=== PATIENT | female | born 1960 | race Caucasian/White ===

== ENCOUNTER 2018-06-15 09:49 | Day surgery (SDC) | payer MEDICARE ==
[~2018-06-15] VITALS: Ht 162.6 cm; Wt 139.5 kg
--- NOTE | ~2018-06-15 | OP ---
PATIENT NAME: LUAN ZAZUETA MEDICAL RECORD: [id number] :58 LOCATION:[facility] ADMISSION DATE: SURGEON: JANAK SIDHU MD DATE OF OPERATION: 06/15/2018 PROCEDURE: EGD with biopsy, gastric polypectomy and hemorrhage control. REFERRING PHYSICIAN: Bernard Mosher MD INDICATIONS: Ms. Zazueta is a delightful 57-year-old woman with a history of short segment Schwartz esophagus, takes Nexium 40 mg b.i.d. She has been having recent symptoms of high epigastric pain with her upper abdomen tender to touch. She presents for outpatient EGD. PREMEDICATIONS: Total IV anesthesia (propofol 180 mg) BMI is 53. INSTRUMENT: Olympus video gastroscope, Hemoclip and Hernandez retrieval basket. PROCEDURE AND FINDINGS: After receiving informed consent, Ms. Zazueta posterior pharynx was anesthetized with Cetacaine spray. She was placed in left lateral decubitus position and sedated as per anesthesia. After achieving adequate level of sedation, gastroscope was introduced per orally and advanced to the duodenum without difficulty. Esophageal mucosa was remarkable for a small 0.3-cm flat polyp in the mid esophagus, which was cold-biopsied. There was a 1 cm tongue of salmon-colored mucosa that extended from the Z line proximally and was biopsied. Small sliding type hiatal hernia was present. Gastric mucosa was notable for multiple small polyps in the body. Also, in the body of the stomach was a larger 1 cm polyp that was inflamed and was semi-pedunculated. The base of the polyp was cauterized and the polyp fell off easily and was retrieved with a Hernandez basket. There was mild oozing of blood at the post-polypectomy site in the body of the stomach and Hemoclip was applied with good results and resolution of bleeding. There was streaky erythema of the antrum and antral biopsies were obtained to rule out Helicobacter pylori. No lesions were seen in the cardia or fundus. Pylorus was patent and competent. Duodenal mucosa was without erythema or ulcers, appeared normal through the second portion. Gastroscope was then withdrawn. Ms. Zazueta tolerated the procedure well. No immediate complications. ASSESSMENT: 1. Small mid esophageal polyp, status post biopsy. 2. 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 3. Small sliding type hiatal hernia. 4. Gastric polyps, status post one gastric polypectomy. 5. Gastritis. 6. Epigastric pain. RECOMMENDATIONS: 1. Follow up histopathology. 2. Avoid aspirin, nonsteroidal anti-inflammatory drugs and ESPINOZA-2 inhibitors for 14 days post polypectomy. 3. Continue Nexium [address] of the abdomen. 5. EGD in 2 years. TRANSINT:[id number] Voice Confirmation ID: [id number] DOCUMENT ID: [id number] OPERATIVE REPORT [id number] LUAN ZAZUETA TERRI MD at 1206 CC: BERNARD MOSHER MD [id number] DICTATION DATE: 06/15/18 1435 SHANK RANDER: 06/15/18 1616 [facility] 06/15/18 [id number] [place] [address]
[~2018-06-15 09:49] MED LIST: AMBIEN5 MG; AMBIEN5 MG PO; ATIVAN0.5 MG; ATIVAN1 MG PO; CARAFATE1 G PO; CELEXA20 MG PO; COMPAZINE10 MG; CRESTOR10 MG PO; CYCLOBENZAPRINE10 MG PO; HUMALOG 30100 UNITS/ SC; HUMALOG MI100 UNITS/ SC; HYDROCODONE-APA1 TAB PO; KLOR-CON 1010 MEQ; LASIX40 MG; LEVEMIR100 U/M1; LEVEMIR100 U/M1 SC; LEVOTHROID88 MCG; LEVSIN/ANASP0.125 MG PO; LOVAZA1 G PO; LYRICA200 MG PO; METOZOLV ODT10 MG; MULTIPLE VITAMI1 TA1 PO; NEXIUM40 MG PO; NORCO 10/325 TA1 TA1; PROAIR HFA8.5 GM IH; REGLAN10 MG PO; REQUIP XL2 MG; REQUIP1 MG PO; SINGULAIR10 MG PO; SYNTHROID88 MCG PO; TOVIAZ4 MG PO
[2018-06-15 12:11] VITALS: BP 175/58; Ht 162.6 cm; Wt 139.5 kg
[2018-06-15 12:25] LABS: BASOPHILS 0.4 % (0-2); EOSINOPHILS 1.7 % (0-7); HEMATOCRIT 35.3 % (36.0-48.0); HEMOGLOBIN 11.5 g/dL (12-16); IMMATURE GRANULOCYTES 0.2 % (0-5); LYMPHOCYTES 31.3 % (15-50); MCH 31.1 pg (26.0-34.0); MCHC 32.6 g/dL (31.0-37.0); MCV 95.4 fL (80.0-100.0); MONOCYTES 11.5 % (2-11); NEUTROPHILS 54.9 % (40-80); PLATELET COUNT 153 10x3/uL (130-400); RDW 13.3 % (11.5-14.5); WBC 5.2 10x3/uL (4.8-10.8)
[2018-06-15 12:52] LABS: ANION GAP 14.5 mmol/L (8-16); CALCIUM 8.7 mg/dL (8.5-10.1); CARBON DIOXIDE 27.6 mmol/L (21.0-32.0); CREATININE - SERUM 1.6 mg/dL (0.6-1.3); POTASSIUM - SERUM 5.1 mmol/L (3.5-5.1)
== END 2018-06-15 16:00 | disposition home or self-care (01) ==
LOC: D.OPS 09:49
PROVIDERS: Anesthesiology
DX: K22.70 Barrett's esophagus without dysplasia (principal); K31.7 Polyp of stomach and duodenum; K44.9 Diaphragmatic hernia without obstruction or gangrene; K29.70 Gastritis, unspecified, without bleeding; Z01.812 Encounter for preprocedural laboratory examination

== ENCOUNTER → 2018-06-19 12:10 | Outpatient (CLI) | payer MEDICARE ==
[2018-06-15 12:11] VITALS: BMI 52.8
== END | disposition home or self-care (01) ==
LOC: D.CT 12:10
DX: R10.10 Upper abdominal pain, unspecified (principal)

== ENCOUNTER 2018-10-24 11:35 | Day surgery (SDC) | payer MEDICARE ==
[~2018-10-24] VITALS: Ht 162.6 cm; Wt 140.0 kg
--- NOTE | ~2018-10-24 | OP ---
PATIENT NAME: LUAN ZAZUETA MEDICAL RECORD: [id number] :58 LOCATION:[facility] ADMISSION DATE: SURGEON: JANAK SIDHU MD DATE OF OPERATION: 10/24/2018 PROCEDURE: EGD with biopsy. REFERRING PHYSICIAN: Bernard Mosher MD INDICATIONS: Ms. Zazueta is a delightful 57-year-old woman with a history of GE reflux disease and short segment Schwartz's esophagus. She had a surveillance EGD on 06/15/2018 that showed a small mid esophageal polyp, short segment Schwartz's esophagus, small sliding type hiatal hernia, gastric polyps (1 that was inflamed and semi-pedunculated was removed and biopsied), and gastritis. The distal esophageal biopsy showed no definite Schwartz's mucosa; however, the fundic gland polyp was read as having high-grade dysplastic changes (Dr. 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 She presents for a followup EGD. PREMEDICATIONS: Total IV anesthesia (propofol 150 mg, her BMI is 48). INSTRUMENT: Olympus video gastroscope. PROCEDURE AND FINDINGS: After receiving informed consent, Ms. Zazueta posterior pharynx was anesthetized with Cetacaine spray. She was kept in the supine position. Bite block was placed and she was sedated as per anesthesia. After achieving an adequate level of sedation, gastroscope was introduced per orally and advanced to the duodenum without difficulty. The esophageal mucosa was notable for 1 small tongue of salmon-colored mucosa extending from the Z line proximally (biopsied on previous exam in May 2018). A small sliding type hiatal hernia was noted. A small scar was identified in the body of the stomach and there was no evidence of polyp regrowth (site of previous dysplastic gastric polyp). There were numerous polyps in the gastric body and fundus of the stomach. Multiple polyps were biopsied in the body and in the fundus. There was mild patchy erythema in the antrum and in the proximal cardia of the stomach. Pylorus was patent and competent. Duodenal mucosa was without erythema or ulcers, appeared normal to the second portion. The gastroscope was then withdrawn. Ms. Zazueta tolerated the procedure well, no immediate complications. ASSESSMENT: 1. Small sliding type hiatal hernia. 2. Gastric polyps involving the body and fundus of the stomach status post biopsy. 3. History of dysplastic gastric body polyp scar identified. No evidence of regrowth. 4. Mild gastritis. 5. History of short segment Schwartz esophagus. RECOMMENDATIONS: 1. Follow up histopathology. 2. If no abnormal findings on gastric polyp biopsies then recommend followup EGD in 1 year. 3. Continue Nexium 40 mg p.o. b.i.d. OPERATIVE REPORT [id number] LUAN ZAZUETA TRANSINT:[id number] Voice Confirmation ID: [id number] DOCUMENT ID: [id number] JANAK SIDHU MD at 2002 CC: BERNARD MOSHER MD [id number] DICTATION DATE: 10/24/18 1444 MAINTENANCE MANAGER: 10/24/18 1517 [facility] 10/24/18 [facility] [address] [place] [address]
[2018-10-24 13:29] VITALS: BP 147/73; Ht 162.6 cm; Wt 140.0 kg
[2018-10-24 13:37] LABS: HEMATOCRIT 35.7 % (36.0-48.0); HEMOGLOBIN 11.5 g/dL (12-16); MCH 31.3 pg (26.0-34.0); MCHC 32.2 g/dL (31.0-37.0); MEAN PLATELET VOLUME 10.9 fL (7.4-10.4); RBC 3.68 10x6/uL (4.00-5.40); RDW 13.5 % (11.5-14.5); WBC 4.3 10x3/uL (4.8-10.8)
[2018-10-24 13:56] LABS: ANION GAP 13.3 mmol/L (8-16); CALCIUM 8.6 mg/dL (8.5-10.1); CARBON DIOXIDE 27.6 mmol/L (21.0-32.0); CREATININE - SERUM 1.7 mg/dL (0.6-1.3); POTASSIUM - SERUM 4.9 mmol/L (3.5-5.1)
== END 2018-10-24 16:45 | disposition home or self-care (01) ==
LOC: D.OPS 11:35
PROVIDERS: Anesthesiology
DX: K21.0 Gastro-esophageal reflux disease with esophagitis (principal); K44.9 Diaphragmatic hernia without obstruction or gangrene; K31.7 Polyp of stomach and duodenum; K29.50 Unspecified chronic gastritis without bleeding; K22.70 Barrett's esophagus without dysplasia; Z01.812 Encounter for preprocedural laboratory examination

== ENCOUNTER 2020-02-11 06:11 | Day surgery (SDC) | payer MEDICARE ==
[~2020-02-11] VITALS: Ht 162.6 cm; Wt 137.3 kg
[~2020-02-11 06:11] MED LIST changes: -REQUIP1 MG PO; +ROPINIROLE HCL2 MG PO
[2020-02-11 08:02] VITALS: BP 135/70; Ht 162.6 cm; Wt 137.3 kg
[2020-02-11] MEDS ORDERED: RANITIDINE HCL150 M1 PO (08:14)
[2020-02-11] MEDS ORDERED: OMEGA-3100 MG PO (08:15)
[2020-02-11] MEDS ORDERED: FLUTICASONE PRO16 GM NASAL (08:15)
[2020-02-11] MEDS ORDERED: IPRATROPIUM BRO15 M1 NASAL (08:16)
[2020-02-11 08:21] LABS: HEMATOCRIT 33.9 % (36.0-48.0); HEMOGLOBIN 10.8 g/dL (12-16); MCH 30.9 pg (26.0-34.0); MCHC 31.9 g/dL (31.0-37.0); MCV 96.9 fL (80.0-100.0); MEAN PLATELET VOLUME 10.7 fL (7.4-10.4); RBC 3.5 10x6/uL (4.00-5.40); RDW 13.9 % (11.5-14.5); WBC 4.9 10x3/uL (4.8-10.8)
[2020-02-11 08:35] LABS: ANION GAP 12.9 mmol/L (8-16); CALCIUM 8.3 mg/dL (8.5-10.1); CARBON DIOXIDE 24.9 mmol/L (21.0-32.0); CREATININE - SERUM 1.9 mg/dL (0.6-1.3); POTASSIUM - SERUM 3.8 mmol/L (3.5-5.1)
--- NOTE | 2020-02-11 10:08 | NUR ---
PT DC INSTRUCTIONS REVIEWED AT THIS TIME, PT AND FAMILY VERBALIZE UNDERSTANDING. PT PORT FLUSHED WITH HEPLOCK AT THIS TIME, AND PORT REMOVED AND DRESSED WITH GAUZE AND TEGARDERM.
--- NOTE | 2020-02-11 10:09 | NUR ---
PT STATES THAT SHE WOULD LIKE TO EAT BROTH PRIOR TO GOING HOME, CURRENTLY WAITING FOR PT TO FINISH EATING PRIOR TO DISCHARGING.
--- NOTE | 2020-02-11 10:56 | NUR ---
PT LEAVING OPS AT THIS TIME VIA WC WITH NURSE.
--- NOTE | 2020-02-11 16:42 | OP ---
PATIENT NAME: LUAN ZAZEUTA MEDICAL RECORD: [id number] :58 LOCATION:[facility] ADMISSION DATE: SURGEON: AL TADEO DO DATE OF OPERATION: 02/11/2020 PROCEDURE: Colonoscopy with polypectomy. INDICATIONS FOR PROCEDURE: Screening colonoscopy with a personal history of polyps. This is a 5 year recall. SCOPE: Olympus video pediatric colonoscope. MEDICATIONS: Propofol 350 mg IV per anesthesia. WITHDRAWAL TIME: 10 minutes. ESTIMATED BLOOD LOSS: Minimal. COMPLICATIONS: None. FINDINGS: Informed consent was given. The patient was made comfortable with the above medication. After reaching an adequate level of sedation by slow IV push, the patient was placed in the left side. A digital rectal examination was performed and it was normal. The endoscope was advanced under direct visualization through the rectum to the cecum and terminal ileum. The endoscope was slowly withdrawn and the mucosa was carefully examined. The prep quality was good. There was a single benign-appearing sessile polyp located in the transverse colon which measured approximately 4-5 mm in diameter. It was removed using a hot snare in 1 piece and completely retrieved. In the sigmoid colon, there were a few small amount of diverticula present. There was no evidence of diverticulitis. Retroflexion was performed in the rectum with a visualization of a normal appearing rectal wall. The endoscope was withdrawn from the patient. The patient tolerated the procedure well and there were no complications. IMPRESSION: 1. Single benign appearing sessile polyp located in the transverse colon status post polypectomy with the hot snare. 2. Mild diverticulosis of the sigmoid colon. PLAN AND RECOMMENDATIONS: 1. Discharge home when recovery parameters are met. 2. Follow up biopsy specimen results. 3. High fiber diet. 4. Continue current medications. 5. Recall colonoscopy in 5 years due to a personal history of polyps. TRANSINT:[id number] Voice Confirmation ID: [id number] DOCUMENT ID: [id number] OPERATIVE REPORT [id number] MARBINAL CARRANZA DO at 1642 CC: [id number] DICTATION DATE: 02/11/20929 [employer] SECUR[employer] SPECIALIST: 02/11/20 1320 [facility] 02/11/20 [id number] [place] [address]
== END 2020-02-11 10:56 | disposition home or self-care (01) ==
LOC: D.OPS 06:11
PROVIDERS: Anesthesiology; ATTEND Internal Medicine Gastroenterology
DX: Z12.11 Encounter for screening for malignant neoplasm of colon (principal); D12.3 Benign neoplasm of transverse colon; K57.30 Diverticulosis of large intestine without perforation or abscess without bleeding; J45.909 Unspecified asthma, uncomplicated; E11.9 Type 2 diabetes mellitus without complications; E07.9 Disorder of thyroid, unspecified